=== PATIENT | female | born 1970 | race African-American/Black ===

== ENCOUNTER 2021-07-16 15:20 | Outpatient (CLI) | payer OTHER | END 2021-07-16 15:21 | disposition home or self-care (01) | LOC: BICMAMMO 15:20 | PROVIDERS: ATTEND Family Medicine | DX: Z12.31 Encounter for screening mammogram for malignant neoplasm of breast (principal); N64.89 Other specified disorders of breast | CPT/HCPCS: 77067 ==

== ENCOUNTER 2021-07-26 09:34 | Outpatient (CLI) | payer OTHER | END 2021-07-26 09:35 | disposition home or self-care (01) | LOC: BICMAMMO 09:34 | PROVIDERS: ATTEND Family Medicine | DX: N64.89 Other specified disorders of breast (principal) | CPT/HCPCS: G0279 ==